=== PATIENT | female | born 1965 | race Two or more races ===

== ENCOUNTER 2023-06-25 11:14 | Emergency (ER) | payer OTHER ==
[~2023-06-25] VITALS: Ht 157.5 cm; Wt 62.1 kg
[2023-06-25] MEDS ORDERED: LOSARTAN POTASS50 MG PO (11:28)
[2023-06-25 12:48] LABS: HEMOGLOBIN 12.8 g/dL (12.0-15.00); MEAN CELL VOLUME 87.3 fL (80.00-100.00); MEAN CORPUSCULAR HEMOGLOBIN 29.5 pg (27.00-32.0); MEAN CORPUSCULAR HGB CONC 33.7 g/dl (32.0-36.0); PLATELET COUNT 330 K/uL (150-450); RED BLOOD COUNT 4.36 M/uL (4.00-6.00); RED CELL DISTRIBUTION WIDTH 13.2 % (11.5-14.5)
== END 2023-06-25 14:26 | disposition home or self-care (01) ==
LOC: ER 11:14
PROVIDERS: General Practice
DX: M94.0 Chondrocostal junction syndrome [Tietze] (principal); I10 Essential (primary) hypertension

== ENCOUNTER 2023-07-28 12:21 | Emergency (ER) | payer OTHER ==
[~2023-07-28] VITALS: Ht 165.1 cm; Wt 63.5 kg
[~2023-07-28 12:21] MED LIST: LOSARTAN POTASS50 MG PO
[2023-07-28] MEDS ORDERED: KETOROLAC TROMETHAMINE 60 MG VIAL IM STA (13:40)
[2023-07-28 14:00] LABS: PH,URINE 5.5 (5.0-8.0); URINE APPEARANCE Clear; URINE BILIRRUBIN Negative (NEGATIVE); URINE BLOOD Negative; URINE COLOR Yellow; URINE GLUCOSE Negative (NEGATIVE); URINE LEUKOCYTE Trace; URINE NITRATE Negative; URINE PROTEIN Negative (NEGATIVE); URINE UROBILINOGEN 0.2 E.U./dl
[2023-07-28 14:01] LABS: HEMATOCRIT 35.1 % (36.0-45.00); MEAN CELL VOLUME 87.7 fL (80.00-100.00); MEAN CORPUSCULAR HEMOGLOBIN 29.9 pg (27.00-32.0); MEAN CORPUSCULAR HGB CONC 34.1 g/dl (32.0-36.0); PLATELET COUNT 288 K/uL (150-450); RED CELL DISTRIBUTION WIDTH 13.2 % (11.5-14.5)
[2023-07-28 14:04] LABS: URINE BACTERIA 47.8 uL (0.0-1933); URINE EPITHELIAL CELLS 7.5 uL (0.0-38.8); URINE RBC 3.1 uL (0.0-20.8); URINE WBC 6.9 uL (0.0-23.2)
[2023-07-28 14:20] LABS: CREATININE SERUM 0.65 mg/dL (0.55-1.02); GFR 93.29; POTASSIUM 4.46 mEq/L (3.5-5.1)
[2023-07-28] MEDS ORDERED: CIPROFLOXACIN IN 5 % DEXTROSE 400 MG/200 ML PIGGYBAG IV STA (15:51)
[2023-07-28] MEDS ORDERED: METRONIDAZOLE/SODIUM CHLORIDE 500 MG/100 ML PIGGYBACK IV STA (15:52)
== END 2023-07-28 16:58 | disposition home or self-care (01) ==
LOC: ER 12:21
PROVIDERS: General Practice
DX: K57.32 Diverticulitis of large intestine without perforation or abscess without bleeding (principal); R10.9 Unspecified abdominal pain